=== PATIENT | male | born 1985 | race Hispanic/Latino ===

== ENCOUNTER → 2024-09-06 | Day surgery (SDC) | payer OTHER ==
[~2024-09-06] MED LIST: DEXMEDETOMIDINE HCL 2 ML ONE; LIDOCAINE HCL 2% LOCAL INJ 5 ML SDV VIAL INJ ONE; MIDAZOLAM HCL 2 MG/2 ML VIAL ONE; PROPOFOL IV EMULSION 10 MG/ML 20 ML VIAL ONE; SODIUM CHLORIDE 0.9% 100 ML ONE
[2024-09-06 09:05] VITALS: BP 118/74; PULSE 84; RESP 16; O2SAT 100
== END | disposition home or self-care (01) ==
LOC: OR 06:36
PROVIDERS: ATTEND Internal Medicine Gastroenterology
DX: K62.5 Hemorrhage of anus and rectum (principal); K64.8 Other hemorrhoids; R03.0 Elevated blood-pressure reading, without diagnosis of hypertension; R94.31 Abnormal electrocardiogram [ECG] [EKG]
CPT/HCPCS: 45378; 93005; J2003; J2250; J2704; J7050